=== PATIENT | female | born 1985 | race Caucasian/White ===

== ENCOUNTER 2019-07-24 10:35 | Emergency (ER) | payer SELFPAY ==
--- NOTE | 2019-07-24 11:15 | Emergency Department Record ---
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 No LOC but felt light headed. Mild nausea without vomiting. Occurred 3 hours prior to arrival. No hx of head injuries or concussion. Walked to the hospital. No other injuries. Onset/Timin -: Hour(s) Mechanism of Injury: Animal related injury Location: Face, Frontal Loss of Consciousness: No Place: Work Severity: Mild, Moderate Severity scale (1-10): 7 Quality: Sharp Consistency: Constant Provoking factors: None known Other Injuries: None Associated Symptoms: Nausea, Vertigo - Related Data Home Medications Medication Instructions Recorded Confirmed Last Taken Ibuprofen 200 mg Tablet [Motrin] 200 mg PO Q6H PRN 07/24/19 07/24/19 Unknown Allergies/Adverse reactions: Allergies Allergy/AdvReac Type Severity Reaction Status Date / Time No Known Allergies Allergy Mild PT UNSURE Verified 07/24/19 10:59 OF REACTION Travel Screening - Travel/Exposure Within Last 30 Days Have you traveled within the last 30 days?: No - Travel/Exposure Within Last Year Have you traveled outside the [place] in the last year?: No - Additonal Travel Details Have you been exposed to anyone with a communicable illness?: No - Travel Symptoms Symptom Screening: None Review of Systems Constitutional: Denies: Chills, Fever Eyes: Denies: Eye discharge ENT: Denies: Congestion, Dental pain, Ear pain Respiratory: Denies: Cough Cardiovascular: Denies: Arrhythmia, Chest pain Endocrine: Denies: Fatigue Gastrointestinal: Reports: Nausea. Denies: Vomiting Musculoskeletal: Denies: Back pain Skin: Denies: Bruising, Rash Neurological: Reports: As per HPI, Headache. Denies: Tingling, Tremors Psychiatric: Denies: Anxiety Hematological/Lymphatic: Denies: Anemia Past Medical History - SOCIAL HISTORY Smoking Status: Never smoker Alcohol Use: Occasional Drug Use: None - RESPIRATORY Hx Respiratory Disorders: Yes Hx Pneumonia: Yes - CARDIOVASCULAR Hx Cardio Disorders: No - NEURO Hx Neuro Disorders: Yes Hx Headaches: Yes - GI Hx GI Disorders: No - Hx Genitourinary Disorders: No - ENDOCRINE Hx Endocrine Disorders: No - MUSCULOSKELETAL Hx Musculoskeletal Disorders: Yes Hx Arthritis: Yes - PSYCH Hx Psych Problems: Yes Hx Anxiety: Yes - HEMATOLOGY/ONCOLOGY Hx Hematology/Oncology Disorders: No Family Medical History Any Significant Family History?: Yes Hx Cancer: Brother/Sister, Grandparents Hx Dementia: Grandparents Hx Diabetes: Children Hx Heart Disease: Father Hx HTN: Father, Grandparents Hx Liver Disease: Father Physical Exam - General General Appearance: Alert, Oriented x3, Cooperative, No acute distress - Head Head exam: Atraumatic, Normocephalic, Normal inspection Head exam detail: negative: Contusion, Hematoma - Eye Eye exam: Normal appearance, PERRL, EOMI - ENT ENT exam: Mucous membranes moist, TM's normal bilaterally Nasal Exam: Normal inspection - Neck Neck exam: Normal inspection, Full ROM. negative: Tenderness - Respiratory Respiratory exam: Normal lung sounds bilaterally. negative: Respiratory distress, Rhonchi, Wheezes - Cardiovascular Peripheral Pulses: 2+: Radial (R), Radial (L) - GI/Abdominal GI/Abdominal exam: Soft, Normal bowel sounds. negative: Tenderness - Extremities Extremities exam: Normal inspection, Full ROM. negative: Tenderness - Back Back exam: Reports: Normal inspection - Neurological Neurological exam: Alert, Normal gait, Oriented X3 - Psychiatric Psychiatric exam: Normal affect, Normal mood - Skin Skin exam: Normal color. negative: Rash Course Vital Signs 07/24/19 10:49 Temperature 98.1 F Pulse Rate 83 Respiratory 16 Rate Blood Pressure 112/77 Pulse Ox 99 - Reevaluation(s) Reevaluation #1: 07/24/19 11:22 Pt exam non focal. Plan for home with close monitoring by . Reviewed reasons for return. She understands. Discussed CT, not indicated present. Pt agrees. Disposition Disposition: Discharge Clinical Impression: Mild concussion Disposition: Home, Self-Care Condition: (1) Good Instructions: Concussion (ED) Additional Instructions: Rest at home. Ice to neck Tylenol for headache Return to the ED if increased Headache, vomiting, change in behavior, or concerns. Forms: Patient Portal Access Time of Disposition: 11:15 Quality - Quality Measures Quality Measures: N/A, Blunt Head Trauma (>2yr) - Blunt Head Trauma - Adult Quality Measure: Measure #415: Utilization of CT for Minor Blunt Head Trauma ICD10 Codes Entered: Yes Was CT ordered: No Does Patient Have Any of the Following: No Exclusions Salvador Score: Please complete Salvador Coma Scale above Utilization of CT for Minor Blunt Head Trauma: Not Eligible For Measure Additional Inclusion Criteria: More than 24hrs (OR) GCS not 15 (OR) CT not ordered. Not Eligible Reason: CT Not Ordered - Blood Pressure Screening Does Patient Have Any of the Following: No Blood Pressure Classification: Normal BP Reading Systolic Measurement: 112 Diastolic Measurement: 77 Screening for High Blood Pressure: < Normal BP, F/U Not Required > [G8783]
== END 2019-07-24 11:24 | disposition home or self-care (01) ==
LOC: ER 10:35
DX: S06.0X9A Concussion with loss of consciousness of unspecified duration, initial encounter (principal); R42 Dizziness and giddiness; R11.0 Nausea; W54.1XXA Struck by dog, initial encounter; Y93.K9 Activity, other involving animal care; Y92.89 Other specified places as the place of occurrence of the external cause; Y99.0 Civilian activity done for income or pay
CPT/HCPCS: 99283